=== PATIENT | female | born 1950 | race Caucasian/White ===

== ENCOUNTER 2018-11-09 09:53 | Emergency (ER) | payer OTHER ==
[~2018-11-09] VITALS: Ht 172.7 cm; Wt 102.1 kg
[~2018-11-09 09:53] MED LIST: ASPIRIN EC81 M1 PO; B-COMPLEX-VITA1 EACH PO; FISH OIL 1,0001 EAC5 PO; HYDROCODON-ACE1 EAC7 PO; LOPRESSOR25 PO; OMEGA 3-6-9 CO1 EACH PO; TOPROL XL25 MG PO
[2018-11-09 10:38] LABS: ABSOLUTE NEUTROPHILS 3.5 thou/uL (1.4-8.2); BASOPHILS 1.1 % (0.0-2.0); EOSINOPHILS 3.5 % (0.0-3.0); HEMATOCRIT 44.3 % (37.0-47.0); HEMOGLOBIN 14.9 gm/dL (12.0-15.0); LYMPHOCYTES 30.1 % (24.0-44.0); MCH 32.4 pg (26.0-34.0); MCHC 33.5 g/dL (28.0-37.0); MCV 96.5 fL (80.0-100.0); PLATELET COUNT 217 thou/uL (150-400); POLYS 57.3 % (36.0-66.0); RDW 13.1 % (10.5-14.5)
[2018-11-09 10:42] LABS: ANION GAP 7 mmol/L (7-16); BUN 21 mg/dL (7-18); CALCIUM 9.2 mg/dL (8.5-10.1); CHLORIDE 107 mmol/L (98-107); CO2 28 mmol/L (21-32); CREATININE 0.9 mg/dL (0.6-1.0); GLUCOSE 94 mg/dL (74-106); POTASSIUM 4.3 mmol/L (3.5-5.1); SODIUM 142 mmol/L (136-145)
[2018-11-09 10:46] LABS: INR 1.9; PROTIME 20.2 Seconds (9.3-11.4)
[2018-11-09 10:50] LABS: ALBUMIN 3.9 g/dL (3.4-5.0); SGOT 28 U/L (15-37); SGPT 48 U/L (30-65); TOTAL BILIRUBIN 0.9 mg/dL (<0.1-1.0); TOTAL PROTEIN 7.3 g/dL (6.4-8.2); TROPONIN-I <0.06 ng/mL (<0.06)
[2018-11-09 11:20] LABS: URINE BILIRUBIN NEGATIVE (Negative); URINE BLOOD NEGATIVE (Negative); URINE CLARITY CLEAR; URINE COLOR YELLOW; URINE GLUCOSE-RANDOM* NEGATIVE (Negative); URINE KETONES NEGATIVE (Negative); URINE LEUKOCYTES-REFLEX NEGATIVE (Negative); URINE NITRITE-REFLEX NEGATIVE (Negative); URINE PROTEIN (DIPSTICK) NEGATIVE (Negative); URINE SPECIFIC GRAVITY <= 1.005 (1.005-1.035); URINE UROBILINOGEN 0.2 E.U./dl (0.2-1.0)
[2018-11-09 14:05] VITALS: BP 122/83
[2018-11-09] MEDS ORDERED: LOVASTATIN 20 M20 MG PO (14:12)
[2018-11-09] MEDS ORDERED: GABAPENTIN 100100 MG PO (14:13)
[2018-11-09] MEDS ORDERED: COUMADIN 2.5MG2.5 M1 PO (14:14)
--- NOTE | 2018-11-09 22:16 | EKG ---
[address] [address] ELECTROCARDIOGRAM REPORT Name: CARLI ORTIZ Room #: DEP [facility]#: [id number] Admission: 11/09/18 Attend Phys: Discharge: 11/09/18 Date of : 48 Report #: [id number] THIS REPORT FOR: //name// [facility] ED Test Date: 2018-11-09 Test Time: 10:09:13 Pat Name: CARLI ORTIZ Department: Room: Gender: F Windows Infrastructure Engineer: ARTURO : 1950 Requested By: Leonidas Myers Order Number: [id number] MD: Micheal Sandhu Measurements Intervals [place] Rate: 57 P: [place]: QRS: 23 QRSD: 106 T: 24 QT: 409 QTc: 399 Interpretive Statements Atrial fibrillation Low voltage, precordial leads Compared to ECG 03/17/2012 13:35:40 Low QRS voltage now present Sinus rhythm no longer present Electronically Signed On 11-09-2018 22:16:18 CONSTRUCTION JOB COST ESTIMATOR by Micheal Sandhu [email or web address] <ELECTRONICALLY SIGNED> By: Micheal Sandhu MD 11/09/18 2216 Micheal Sandhu MD /PAVITHRA
== END 2018-11-09 14:13 | disposition home or self-care (01) ==
LOC: ER 09:53
PROVIDERS: Emergency Medicine
DX: R07.89 Other chest pain (principal); R42 Dizziness and giddiness; I48.91 Unspecified atrial fibrillation; Z87.891 Personal history of nicotine dependence; Z90.710 Acquired absence of both cervix and uterus

== ENCOUNTER → 2019-12-03 | Outpatient (CLI) | payer OTHER ==
[~2019-12-03] MED LIST changes: +COUMADIN 2.5MG2.5 M1 PO; +GABAPENTIN 100100 MG PO; +LOVASTATIN 20 M20 MG PO
== END ==
LOC: SJCVC 15:56
DX: Z51.81 Encounter for therapeutic drug level monitoring (principal); E78.5 Hyperlipidemia, unspecified; Z79.01 Long term (current) use of anticoagulants

== ENCOUNTER → 2019-12-10 | Outpatient (CLI) | payer OTHER | LOC: SJCVC 14:29 | DX: Z51.81 Encounter for therapeutic drug level monitoring (principal); M19.90 Unspecified osteoarthritis, unspecified site; I48.91 Unspecified atrial fibrillation; Z79.01 Long term (current) use of anticoagulants ==

== ENCOUNTER → 2019-12-28 | Outpatient (CLI) | payer OTHER | LOC: SJCVC 10:41 | DX: Z51.81 Encounter for therapeutic drug level monitoring (principal); I48.91 Unspecified atrial fibrillation; M19.90 Unspecified osteoarthritis, unspecified site; Z79.01 Long term (current) use of anticoagulants ==

== ENCOUNTER → 2020-01-07 | Outpatient (CLI) | payer OTHER | LOC: SJCVC 13:22 | DX: Z51.81 Encounter for therapeutic drug level monitoring (principal); I48.91 Unspecified atrial fibrillation; E78.5 Hyperlipidemia, unspecified; M19.90 Unspecified osteoarthritis, unspecified site; Z79.01 Long term (current) use of anticoagulants ==

== ENCOUNTER → 2020-01-21 | Outpatient (CLI) | payer OTHER ==
[~2020-01-21] MED LIST changes: +CYMBALTA60 MG PO; +NEURONTIN 400M400 M2 PO; +OXYCODONE HCL5 MG PO
== END ==
LOC: SJCVC 10:14
PROVIDERS: ATTEND Internal Medicine Cardiovascular Disease
DX: Z51.81 Encounter for therapeutic drug level monitoring (principal); I48.91 Unspecified atrial fibrillation; M19.90 Unspecified osteoarthritis, unspecified site; E78.5 Hyperlipidemia, unspecified; Z79.01 Long term (current) use of anticoagulants

== ENCOUNTER → 2020-02-11 | Outpatient (CLI) | payer OTHER | LOC: SJCVC 13:34 | DX: Z51.81 Encounter for therapeutic drug level monitoring (principal); I48.91 Unspecified atrial fibrillation; E78.5 Hyperlipidemia, unspecified; M19.90 Unspecified osteoarthritis, unspecified site; Z79.01 Long term (current) use of anticoagulants; Z79.899 Other long term (current) drug therapy ==

== ENCOUNTER 2020-02-14 17:33 | Emergency (ER) | payer OTHER ==
[~2020-02-14] VITALS: Ht 175.3 cm; Wt 96.2 kg
[~2020-02-14 17:33] MED LIST changes: -CYMBALTA60 MG PO; -NEURONTIN 400M400 M2 PO; -OXYCODONE HCL5 MG PO
[2020-02-14] MEDS ORDERED: NEURONTIN 400M400 M2 PO (18:05)
[2020-02-14] MEDS ORDERED: CYMBALTA60 MG PO (18:07)
[2020-02-14] MEDS ORDERED: OXYCODONE HCL5 MG PO (18:08)
[2020-02-14 18:45] LABS: ABSOLUTE NEUTROPHILS 4.1 thou/uL (1.4-8.2); BASOPHILS 0.7 % (0.0-2.0); EOSINOPHILS 3.6 % (0.0-3.0); HEMATOCRIT 44.5 % (37.0-47.0); HEMOGLOBIN 15.3 gm/dL (12.0-15.0); LYMPHOCYTES 30.4 % (24.0-44.0); MCH 33.5 pg (26.0-34.0); MCHC 34.3 g/dL (28.0-37.0); MCV 97.4 fL (80.0-100.0); MONOCYTES 8.1 % (1.0-8.0); PLATELET COUNT 243 thou/uL (150-400); POLYS 57.2 % (36.0-66.0); RBC 4.56 mil/uL (4.20-5.00); RDW 13.3 % (10.5-14.5); WBC 7.2 thou/uL (4.0-11.0)
[2020-02-14 18:54] LABS: ANION GAP 9 mmol/L (7-16); BUN 14 mg/dL (7-18); CALCIUM 9.1 mg/dL (8.5-10.1); CHLORIDE 101 mmol/L (98-107); CO2 25 mmol/L (21-32); CREATININE 0.9 mg/dL (0.6-1.0); GLUCOSE 92 mg/dL (74-106); POTASSIUM 3.8 mmol/L (3.5-5.1); SODIUM 135 mmol/L (136-145)
[2020-02-14 19:00] LABS: APTT 36.8 Seconds (24.5-32.8); PROTIME 20.1 Seconds (9.3-11.4)
[2020-02-14 19:05] LABS: ALBUMIN 3.7 g/dL (3.4-5.0); SGOT 28 U/L (15-37); SGPT 32 U/L (30-65); TOTAL BILIRUBIN 1.2 mg/dL (<0.1-1.0); TROPONIN-I <0.06 ng/mL (<0.06)
[2020-02-14 19:38] LABS: URINE BILIRUBIN NEGATIVE (Negative); URINE BLOOD NEGATIVE (Negative); URINE CLARITY CLOUDY; URINE COLOR YELLOW; URINE GLUCOSE-RANDOM* NEGATIVE (Negative); URINE KETONES 1+ (Negative); URINE LEUKOCYTES-REFLEX NEGATIVE (Negative); URINE NITRITE-REFLEX NEGATIVE (Negative); URINE PROTEIN (DIPSTICK) NEGATIVE (Negative); URINE SPECIFIC GRAVITY 1.025 (1.005-1.035)
[2020-02-14 20:00] VITALS: BP 134/90
--- NOTE | 2020-02-15 08:19 | EKG ---
[facility] [place] [address] [address] [place] [address] ELECTROCARDIOGRAM REPORT Name: CARLI ORTIZ Room #: DEP [facility]#: [id number] Admission: 02/14/20 Attend Phys: Discharge: 02/14/20 Date of : 48 Report #: [id number] THIS REPORT FOR: cc: Jt Blandon MD, Jin S. MD Lundgren, Craig H. MD [facility] ~ THIS REPORT FOR: //name// [facility] ED Test Date: 2020-02-14 Test Time: 18:51:15 Pat Name: CARLI ORTIZ Department: Room: Gender: F Banking Manager: : 1950 Requested By: Sri Walker Order Number: [id number] MD: Sami Angel Measurements Intervals [place] Rate: 70 P: NE: QRS: 20 QRSD: 98 T: -6 QT: 409 QTc: 442 Interpretive Statements Atrial fibrillation Low voltage, precordial leads Poor R wave progression Borderline T abnormalities, inferior leads Compared to ECG 11/09/2018 10:09:13 T-wave abnormality now present Electronically Signed On 02-15-2020 8:18:14 CDT by Sami Angel [email or web address] <ELECTRONICALLY SIGNED> By: Sami Angel MD, [facility] 02/15/20 0818 50 50 Sami Angel MD, [facility] /EPI
== END 2020-02-14 20:00 | disposition home or self-care (01) ==
LOC: ER 17:33
PROVIDERS: Physician Assistant
DX: B34.9 Viral infection, unspecified (principal); E86.0 Dehydration; I48.91 Unspecified atrial fibrillation; F17.210 Nicotine dependence, cigarettes, uncomplicated; Z03.818 Encounter for observation for suspected exposure to other biological agents ruled out; Z90.49 Acquired absence of other specified parts of digestive tract; Z90.710 Acquired absence of both cervix and uterus; Z79.899 Other long term (current) drug therapy; Z79.01 Long term (current) use of anticoagulants

== ENCOUNTER → 2020-03-11 | Outpatient (CLI) | payer OTHER ==
[~2020-03-11] MED LIST changes: +CYMBALTA60 MG PO; +NEURONTIN 400M400 M2 PO; +OXYCODONE HCL5 MG PO
== END ==
LOC: SJCVC 13:16
DX: Z51.81 Encounter for therapeutic drug level monitoring (principal); Z79.01 Long term (current) use of anticoagulants

== ENCOUNTER → 2020-04-09 | Outpatient (CLI) | payer OTHER | LOC: SJCVC 16:05 | PROVIDERS: ATTEND Internal Medicine Cardiovascular Disease | DX: Z51.81 Encounter for therapeutic drug level monitoring (principal); I48.91 Unspecified atrial fibrillation; M19.90 Unspecified osteoarthritis, unspecified site; E78.5 Hyperlipidemia, unspecified; Z79.01 Long term (current) use of anticoagulants ==

== ENCOUNTER → 2020-05-12 | Outpatient (CLI) | payer OTHER | LOC: SJCVC 13:22 | PROVIDERS: ATTEND Internal Medicine Cardiovascular Disease | DX: Z51.81 Encounter for therapeutic drug level monitoring (principal); I48.91 Unspecified atrial fibrillation; E78.5 Hyperlipidemia, unspecified; Z79.01 Long term (current) use of anticoagulants; Z79.899 Other long term (current) drug therapy ==

== ENCOUNTER → 2020-06-17 | Outpatient (CLI) | payer OTHER | LOC: SJCVCIMAG 13:15 | PROVIDERS: ATTEND Internal Medicine Cardiovascular Disease | DX: I08.2 Rheumatic disorders of both aortic and tricuspid valves (principal); I48.91 Unspecified atrial fibrillation; I44.0 Atrioventricular block, first degree; I49.49 Other premature depolarization; E78.5 Hyperlipidemia, unspecified; I47.1 Supraventricular tachycardia; Z79.01 Long term (current) use of anticoagulants; Z79.899 Other long term (current) drug therapy; Z87.891 Personal history of nicotine dependence ==

== ENCOUNTER → 2020-06-25 | Outpatient (CLI) | payer OTHER | LOC: SJCVC 11:12 | PROVIDERS: ATTEND Internal Medicine Cardiovascular Disease | DX: Z51.81 Encounter for therapeutic drug level monitoring (principal); I10 Essential (primary) hypertension; I48.91 Unspecified atrial fibrillation; E78.5 Hyperlipidemia, unspecified; Z90.49 Acquired absence of other specified parts of digestive tract; Z79.01 Long term (current) use of anticoagulants ==

== ENCOUNTER → 2020-07-03 | Outpatient (CLI) | payer OTHER | LOC: CAT 09:51 | PROVIDERS: ATTEND Family Medicine | DX: I31.3 Pericardial effusion (noninflammatory) (principal); M47.816 Spondylosis without myelopathy or radiculopathy, lumbar region; J98.6 Disorders of diaphragm; R11.0 Nausea; R10.9 Unspecified abdominal pain; R63.4 Abnormal weight loss ==

== ENCOUNTER → 2020-07-09 | Outpatient (CLI) | payer OTHER | LOC: SJCVC 10:06 | PROVIDERS: ATTEND Internal Medicine Cardiovascular Disease | DX: Z51.81 Encounter for therapeutic drug level monitoring (principal); I48.91 Unspecified atrial fibrillation; I10 Essential (primary) hypertension; E78.5 Hyperlipidemia, unspecified; Z90.49 Acquired absence of other specified parts of digestive tract; Z79.01 Long term (current) use of anticoagulants ==

== ENCOUNTER → 2020-07-23 | Outpatient (CLI) | payer OTHER | LOC: SJCVC 13:35 | PROVIDERS: ATTEND Internal Medicine Cardiovascular Disease | DX: Z51.81 Encounter for therapeutic drug level monitoring (principal); Z79.01 Long term (current) use of anticoagulants; I48.91 Unspecified atrial fibrillation; E78.5 Hyperlipidemia, unspecified ==

== ENCOUNTER → 2020-08-20 | Outpatient (CLI) | payer OTHER | LOC: SJCVC 13:12 | PROVIDERS: ATTEND Internal Medicine Cardiovascular Disease | DX: Z51.81 Encounter for therapeutic drug level monitoring (principal); I48.91 Unspecified atrial fibrillation; M19.90 Unspecified osteoarthritis, unspecified site; E78.5 Hyperlipidemia, unspecified; Z79.01 Long term (current) use of anticoagulants; Z79.899 Other long term (current) drug therapy ==

== ENCOUNTER → 2020-09-17 | Outpatient (CLI) | payer OTHER | LOC: SJCVC 12:53 | PROVIDERS: ATTEND Internal Medicine Cardiovascular Disease | DX: Z51.81 Encounter for therapeutic drug level monitoring (principal); Z79.01 Long term (current) use of anticoagulants ==

== ENCOUNTER → 2020-10-15 | Outpatient (CLI) | payer OTHER | LOC: SJCVC 13:18 | PROVIDERS: ATTEND Internal Medicine Cardiovascular Disease | DX: Z51.81 Encounter for therapeutic drug level monitoring (principal); I48.91 Unspecified atrial fibrillation; M19.90 Unspecified osteoarthritis, unspecified site; E78.5 Hyperlipidemia, unspecified; Z79.01 Long term (current) use of anticoagulants; Z79.899 Other long term (current) drug therapy ==

== ENCOUNTER → 2020-11-13 | Outpatient (CLI) | payer OTHER | LOC: SJCVC 15:42 | PROVIDERS: ATTEND Internal Medicine Cardiovascular Disease | DX: Z51.81 Encounter for therapeutic drug level monitoring (principal); Z79.01 Long term (current) use of anticoagulants; Z79.891 Long term (current) use of opiate analgesic; Z79.899 Other long term (current) drug therapy; Z90.89 Acquired absence of other organs; Z90.710 Acquired absence of both cervix and uterus; Z98.890 Other specified postprocedural states; Z87.891 Personal history of nicotine dependence; Z72.89 Other problems related to lifestyle ==

== ENCOUNTER → 2020-12-15 | Outpatient (CLI) | payer OTHER | LOC: SJCVC 13:32 | PROVIDERS: ATTEND Internal Medicine Cardiovascular Disease | DX: Z51.81 Encounter for therapeutic drug level monitoring (principal); Z79.01 Long term (current) use of anticoagulants; Z79.899 Other long term (current) drug therapy; Z79.891 Long term (current) use of opiate analgesic; Z87.891 Personal history of nicotine dependence; Z72.89 Other problems related to lifestyle; F12.90 Cannabis use, unspecified, uncomplicated ==

== ENCOUNTER → 2020-12-23 | Outpatient (CLI) | payer OTHER | LOC: SJCVC 12:50 | PROVIDERS: ATTEND Internal Medicine Cardiovascular Disease | DX: R94.31 Abnormal electrocardiogram [ECG] [EKG] (principal); I48.91 Unspecified atrial fibrillation; E78.5 Hyperlipidemia, unspecified; I47.1 Supraventricular tachycardia; R07.9 Chest pain, unspecified; Z79.01 Long term (current) use of anticoagulants; Z79.899 Other long term (current) drug therapy; M19.90 Unspecified osteoarthritis, unspecified site; I10 Essential (primary) hypertension; Z87.891 Personal history of nicotine dependence; Z72.89 Other problems related to lifestyle; F12.90 Cannabis use, unspecified, uncomplicated ==

== ENCOUNTER → 2021-01-12 | Outpatient (CLI) | payer OTHER | LOC: SJCVCIMAG 09:18 | PROVIDERS: ATTEND Internal Medicine Cardiovascular Disease | DX: I48.91 Unspecified atrial fibrillation (principal); R06.00 Dyspnea, unspecified; E78.5 Hyperlipidemia, unspecified; I47.1 Supraventricular tachycardia; R07.9 Chest pain, unspecified; I10 Essential (primary) hypertension; M19.90 Unspecified osteoarthritis, unspecified site; F12.90 Cannabis use, unspecified, uncomplicated; Z79.899 Other long term (current) drug therapy; Z87.891 Personal history of nicotine dependence; Z72.89 Other problems related to lifestyle; Z79.01 Long term (current) use of anticoagulants ==

== ENCOUNTER 2021-02-03 16:56 | Inpatient (IN) | payer OTHER ==
[~2021-02-03] VITALS: Ht 172.7 cm; Wt 90.7 kg
[2021-02-03 17:17] VITALS: BP 159/105
[2021-02-03 17:38] LABS: URINE BLOOD 2+ (Negative); URINE CLARITY CLEAR; URINE COLOR YELLOW; URINE GLUCOSE-RANDOM* NEGATIVE (Negative); URINE KETONES TRACE (Negative); URINE LEUKOCYTES-REFLEX NEGATIVE (Negative); URINE NITRITE-REFLEX NEGATIVE (Negative); URINE PROTEIN (DIPSTICK) 1+ (Negative); URINE SPECIFIC GRAVITY 1.015 (1.005-1.035)
[2021-02-03 17:41] LABS: ICTOTEST (BILI CONFIRMATORY) Negative (Negative); URINE BILIRUBIN NEGATIVE (Negative)
[2021-02-03 17:46] LABS: BASOPHILS 0.8 % (0.0-2.0); EOSINOPHILS 1.2 % (0.0-3.0); HEMATOCRIT 49.4 % (37.0-47.0); HEMOGLOBIN 17.3 gm/dL (12.0-15.0); LYMPHOCYTES 25.7 % (24.0-44.0); MCH 34.7 pg (26.0-34.0); MONOCYTES 6.6 % (1.0-8.0); PLATELET COUNT 255 thou/uL (150-400); POLYS 65.7 % (36.0-66.0); RBC 4.99 mil/uL (4.20-5.00); RDW 12.9 % (10.5-14.5); WBC 10.7 thou/uL (4.0-11.0)
[2021-02-03 17:48] LABS: MUCUS 4-6 Moderate strn/LPF (None Seen); SQUAMOUS >10 Many /LPF (0-3)
[2021-02-03 17:49] LABS: AMORPHOUS URATES Few /LPF (None Seen); URINE RBC 0-2 Rare /HPF (0-2); URINE WBC-REFLEX 0-5 Rare /HPF (0-5)
[2021-02-03 17:50] LABS: CASTS None Seen /LPF (None Seen)
[2021-02-03 18:00] LABS: CALCIUM 9.6 mg/dL (8.5-10.1); CREATININE 0.9 mg/dL (0.6-1.0); POTASSIUM 4.5 mmol/L (3.5-5.1)
[2021-02-03 18:02] LABS: APTT 32.5 Seconds (24.5-32.8); INR 1.67; PROTIME 17.8 Seconds (9.3-11.4)
[2021-02-03 18:05] LABS: ALBUMIN 4.4 g/dL (3.4-5.0); TOTAL BILIRUBIN 1.4 mg/dL (0.2-1.0); TOTAL PROTEIN 8.2 g/dL (6.4-8.2)
[2021-02-03 18:18] LABS: AMP/METHAMP Negative (Negative); BARBITURATES Negative (Negative); BENZODIAZEPINES Negative (Negative); COCAINE Negative (Negative); METHADONE Negative (Negative); OPIATES POSITIVE (Negative); PCP Negative (Negative)
[2021-02-03 21:32] VITALS: BP 158/91
[2021-02-03 22:13] VITALS: BP 126/62
[2021-02-03 23:04] VITALS: BP 157/104
[2021-02-04] MEDS ORDERED: WARFARIN SODIUM5 MG PO (00:41)
--- NOTE | 2021-02-04 01:09 | NUR ---
PT ARRIVED FROM THE ER. A&OX4 DENIES PAIN. C/O NAUSEA ONETIME COMPAZINE GIVEN. PT EXPRESSED RELIEF. IV INTACT AND FLUIDS INFUSING. PT ON CLEAR LIQUID DIET. CLEAR LUNGS SOUNDS. DENIES COUGH, C/O FEVER AND CHILLS TEMP 98.8. PT UP AD MAC TO THE BATHROOM. EDUCATION ON FALL PRECAUTIONS. WILL CONT TO MONITOR.
[2021-02-04 05:51] LABS: INR 1.67; PROTIME 17.8 Seconds (9.3-11.4)
[2021-02-04 05:54] LABS: HEMATOCRIT 44.4 % (37.0-47.0); MCH 33.7 pg (26.0-34.0); MCHC 33.8 g/dL (28.0-37.0); MCV 99.8 fL (80.0-100.0); RBC 4.45 mil/uL (4.20-5.00); WBC 8.3 thou/uL (4.0-11.0)
[2021-02-04 06:13] LABS: CALCIUM 8.8 mg/dL (8.5-10.1); CREATININE 0.9 mg/dL (0.6-1.0); POTASSIUM 3.8 mmol/L (3.5-5.1)
[2021-02-04 08:58] VITALS: BP 145/103
--- NOTE | 2021-02-04 09:06 | NUR ---
ASSESSMENT: CM REVIEWED CHART AND SPOKE WITH PATIENT. PT IS ALERT AND ORIENTED X4. PT REPORTS SHE LIVES IN A HOUSE WITH HER DAUGHTER AND GRANDDAUGHTER. PT REPORTS SHE HAS ABOUT 5-6 STEPS WITH HANDRAIL TO ENTER. PT REPORTS ALL HER NEEDS ARE ON ONE LEVEL. PT REPORTS BEING FULLY INDEPENDENT WITH ADLS AND AMBULATION. PT HAS NO DME OR THE NEED FOR IT. PT HAS NO PAST HX OF HH OR SNF. PT WAS ADMITTED DUE TO INTRACTABLE VOMITTING AND ABDOMINAL PAIN. PT UDS POSITIVE FOR [place] AND PER RECORDS REPORTS SMOKING 2-3X/WK. PT IS ON CLEAR LIQUIDS AND GI HAS BEEN CONSULTED. CM DISCUSSED ROLE. PT DOES NOT ANTICIPATE HAVING ANY NEEDS FROM CM PRIOR TO DISCHARGE. CM WILL CONTINUE TO FOLLOW TO ASSIST NEEDED.
--- NOTE | 2021-02-04 10:26 | NUR ---
ASSUMED PT CARE THIS AM. PT IS ALERT & ORIENTED X4. PT HAS R FA 20 GAUGE RUNNING NS @125ML/HR. PT C/O OF HEADACHE AND NAUSEA THIS AM. GIVEN PAIN AND NAUSEA MEDICATION. PT STATED SHE DIDN'T SLEEP WELL LAST NIGHT. PT ON THE BED SLEEPING, BED ON THE LOWEST POSITION, SIDE RAILS UP, CALL LIGHT WITHIN REACH. WILL CONTINUE TO MONITOR PT. FOLLOW POC.
[2021-02-04 15:10] VITALS: BP 129/94
--- NOTE | 2021-02-04 17:26 | EKG ---
[address] [place] [address] ELECTROCARDIOGRAM REPORT Name: CARLI ORTIZ Room #: 437-P ADM IN M.R.#: [id number] Admission: 02/03/21 Attend Phys: Shaji Apodaca MD Discharge: Date of : 48 Report #: [id number] [facility] ED Test Date: 2021-02-03 Test Time: 17:51:57 Pat Name: CARLI ORTIZ Department: Room: [facility] Gender: F Business Development Recruiter: KARI VICENTE : 1950 Requested By: Wilber Brooks Order Number: [id number] MD: Sami Angel Measurements Intervals [place] Rate: 75 P: [place]: QRS: 31 QRSD: 104 T: -6 QT: 399 QTc: 446 Interpretive Statements Atrial fibrillation Poor R wave progression Borderline T abnormalities, inferior leads Compared to ECG 02/14/2020 18:51:15 No significant change was found Electronically Signed On 02-04-2021 17:26:35 CDT by Sami Angel [email or web address] <ELECTRONICALLY SIGNED> By: Sami Angel MD, [facility] 02/04/21 172 50 50 Sami Angel MD, [facility] /EPI
[2021-02-04 18:57] VITALS: BP 134/79
[2021-02-05 04:05] VITALS: BP 152/93
--- NOTE | 2021-02-05 04:55 | NUR ---
RECEIVED CARE OF THIS PATIENT AT 1900. PATIENT ALERT AND ORIENTED AND VERY ANXIOUS. WANTS TO GO HOME TO THE POINT OF CRYING. UP AD MAC. DENIES PAIN. C/O MILD PRESSURE FEELING IN ABD. NO C/O NAUSEA THIS SHIFT. IV PATENT WITH FLUIDS INFUSING. SLEPT OFF AND ON DURING NIGHT.
[2021-02-05 05:20] LABS: HEMATOCRIT 42.9 % (37.0-47.0); HEMOGLOBIN 14.5 gm/dL (12.0-15.0); MCH 33.5 pg (26.0-34.0); MCHC 33.8 g/dL (28.0-37.0); MCV 99.1 fL (80.0-100.0); RBC 4.32 mil/uL (4.20-5.00); RDW 12.8 % (10.5-14.5); WBC 7.6 thou/uL (4.0-11.0)
[2021-02-05 05:50] LABS: CALCIUM 8.7 mg/dL (8.5-10.1); CREATININE 0.8 mg/dL (0.6-1.0); POTASSIUM 3.6 mmol/L (3.5-5.1)
[2021-02-05 05:52] LABS: INR 1.89
[2021-02-05 07:53] VITALS: BP 131/90
--- NOTE | 2021-02-05 12:00 | NUR ---
ASSUMED PT CARE THIS AM. PT IS ALERT & ORIENTED X4. NO NAUSEA AND VOMITING DURING SHIFT. PT HAS IV SITE ON R UA 20 GAUGE RUNNING NS @ 125ML/HR. INFORM DR ABOUT PT CONCERN THAT SHE WANTED TO BE DISCHARGE TODAY. PT ON THE BED, BED ON THE LOWEST POSITION, SIDE RAILS UP, CALL LIGHT WITHIN REACH. WILL CONTINUE TO MONITOR. FOLLOW POC.
[2021-02-05 12:10] VITALS: BP 131/90
--- NOTE | 2021-02-05 12:52 | NUR ---
on-going assessment: CM REVIEWED CHART. PT HAS ORDERS TO DISCHARGE HOME TODAY. PT HAS NO NEEDS FROM CM.
== END 2021-02-05 13:03 | disposition home or self-care (01) | DRG 918 ==
LOC: ER 16:56 → EROBS 21:06 → 4S 21:06
PROVIDERS: Emergency Medicine; Nurse Practitioner Family; ADMIT Hospitalist; ATTEND Hospitalist
DX: T40.7X1A Poisoning by cannabis (derivatives), accidental (unintentional), initial encounter (principal); K52.1 Toxic gastroenteritis and colitis; R11.2 Nausea with vomiting, unspecified; I48.91 Unspecified atrial fibrillation; J30.2 Other seasonal allergic rhinitis; I10 Essential (primary) hypertension; E78.5 Hyperlipidemia, unspecified; M19.90 Unspecified osteoarthritis, unspecified site; F32.9 Major depressive disorder, single episode, unspecified; F41.9 Anxiety disorder, unspecified; F12.10 Cannabis abuse, uncomplicated; E53.8 Deficiency of other specified B group vitamins; M81.0 Age-related osteoporosis without current pathological fracture; Z90.710 Acquired absence of both cervix and uterus; Z90.49 Acquired absence of other specified parts of digestive tract; Z87.891 Personal history of nicotine dependence; Z79.01 Long term (current) use of anticoagulants
CPT/HCPCS: 10102

== ENCOUNTER → 2021-02-09 | Outpatient (CLI) | payer OTHER ==
[~2021-02-09] MED LIST changes: +WARFARIN SODIUM5 MG PO
== END ==
LOC: SJCVC 13:15
PROVIDERS: ATTEND Internal Medicine Cardiovascular Disease
DX: Z51.81 Encounter for therapeutic drug level monitoring (principal); I48.91 Unspecified atrial fibrillation; I47.1 Supraventricular tachycardia; E78.5 Hyperlipidemia, unspecified; Z79.01 Long term (current) use of anticoagulants; Z79.899 Other long term (current) drug therapy; Z87.891 Personal history of nicotine dependence; Z72.89 Other problems related to lifestyle

== ENCOUNTER → 2021-03-09 | Outpatient (CLI) | payer OTHER | LOC: SJCVC 13:04 | PROVIDERS: ATTEND Internal Medicine Cardiovascular Disease | DX: Z51.81 Encounter for therapeutic drug level monitoring (principal); I48.91 Unspecified atrial fibrillation; M19.90 Unspecified osteoarthritis, unspecified site; E78.5 Hyperlipidemia, unspecified; R07.9 Chest pain, unspecified; Z79.01 Long term (current) use of anticoagulants ==

== ENCOUNTER → 2021-04-13 | Outpatient (CLI) | payer OTHER | LOC: SJCVC 10:35 | PROVIDERS: ATTEND Internal Medicine Cardiovascular Disease | DX: Z51.81 Encounter for therapeutic drug level monitoring (principal); I48.91 Unspecified atrial fibrillation; I47.1 Supraventricular tachycardia; M19.90 Unspecified osteoarthritis, unspecified site; E78.5 Hyperlipidemia, unspecified; Z79.01 Long term (current) use of anticoagulants ==

== ENCOUNTER 2021-04-17 21:13 | Emergency (ER) | payer OTHER ==
[~2021-04-17] VITALS: Ht 172.7 cm; Wt 88.5 kg
[2021-04-17 23:16] VITALS: BP 104/75
== END 2021-04-17 23:17 | disposition home or self-care (01) ==
LOC: ER 21:13
DX: S91.115A Laceration without foreign body of left lesser toe(s) without damage to nail, initial encounter (principal); I10 Essential (primary) hypertension; I48.91 Unspecified atrial fibrillation; F17.210 Nicotine dependence, cigarettes, uncomplicated; Z90.89 Acquired absence of other organs; Z98.890 Other specified postprocedural states; Z90.710 Acquired absence of both cervix and uterus; W04.XXXA Fall while being carried or supported by other persons, initial encounter; Y93.89 Activity, other specified; Y92.89 Other specified places as the place of occurrence of the external cause; Y99.8 Other external cause status

== ENCOUNTER → 2021-05-14 | Outpatient (CLI) | payer OTHER | LOC: SJCVC 13:51 | PROVIDERS: ATTEND Internal Medicine Cardiovascular Disease | DX: Z51.81 Encounter for therapeutic drug level monitoring (principal); I48.91 Unspecified atrial fibrillation; M19.90 Unspecified osteoarthritis, unspecified site; E78.5 Hyperlipidemia, unspecified; Z79.01 Long term (current) use of anticoagulants; Z79.899 Other long term (current) drug therapy ==

== ENCOUNTER 2021-06-05 11:03 | Emergency (ER) | payer OTHER ==
[~2021-06-05] VITALS: Ht 172.7 cm; Wt 88.5 kg
[2021-06-05 11:19] LABS: URINE BILIRUBIN NEGATIVE (Negative); URINE BLOOD TRACE (Negative); URINE CLARITY CLEAR; URINE COLOR YELLOW; URINE GLUCOSE-RANDOM* NEGATIVE (Negative); URINE KETONES NEGATIVE (Negative); URINE LEUKOCYTES-REFLEX NEGATIVE (Negative); URINE NITRITE-REFLEX NEGATIVE (Negative); URINE PROTEIN (DIPSTICK) NEGATIVE (Negative); URINE SPECIFIC GRAVITY 1.015 (1.005-1.035); URINE UROBILINOGEN 0.2 E.U./dl (0.2-1.0)
[2021-06-05 11:35] LABS: HEMATOCRIT 44.2 % (37.0-47.0); HEMOGLOBIN 15.1 gm/dL (12.0-15.0); MCH 34.3 pg (26.0-34.0); MCHC 34.2 g/dL (28.0-37.0); MCV 100.1 fL (80.0-100.0); RBC 4.42 mil/uL (4.20-5.00); RDW 13.4 % (10.5-14.5); WBC 7.6 thou/uL (4.0-11.0)
[2021-06-05 11:45] LABS: CALCIUM 9.2 mg/dL (8.5-10.1); POTASSIUM 4.3 mmol/L (3.5-5.1)
[2021-06-05 11:51] LABS: ALBUMIN 4.1 g/dL (3.4-5.0); TOTAL PROTEIN 7.2 g/dL (6.4-8.2)
[2021-06-05 14:22] VITALS: BP 129/89
== END 2021-06-05 14:27 | disposition home or self-care (01) ==
LOC: ER 11:03
PROVIDERS: Nurse Practitioner Family
DX: R10.32 Left lower quadrant pain (principal); F32.9 Major depressive disorder, single episode, unspecified; F41.9 Anxiety disorder, unspecified; I10 Essential (primary) hypertension; E78.5 Hyperlipidemia, unspecified; Z90.710 Acquired absence of both cervix and uterus; Z90.49 Acquired absence of other specified parts of digestive tract; Z79.899 Other long term (current) drug therapy; Z88.6 Allergy status to analgesic agent; Z87.891 Personal history of nicotine dependence

== ENCOUNTER → 2021-06-15 | Outpatient (CLI) | payer OTHER | LOC: SJCVC 12:53 | PROVIDERS: ATTEND Internal Medicine Cardiovascular Disease | DX: Z51.81 Encounter for therapeutic drug level monitoring (principal); Z79.01 Long term (current) use of anticoagulants ==

== ENCOUNTER → 2021-07-15 | Outpatient (CLI) | payer OTHER | LOC: SJCVC 14:24 | PROVIDERS: ATTEND Internal Medicine Cardiovascular Disease | DX: I48.91 Unspecified atrial fibrillation (principal); R94.31 Abnormal electrocardiogram [ECG] [EKG]; E78.5 Hyperlipidemia, unspecified; I10 Essential (primary) hypertension; F12.90 Cannabis use, unspecified, uncomplicated; Z79.891 Long term (current) use of opiate analgesic; Z79.899 Other long term (current) drug therapy; Z72.89 Other problems related to lifestyle; Z87.891 Personal history of nicotine dependence; Z51.81 Encounter for therapeutic drug level monitoring; Z79.01 Long term (current) use of anticoagulants ==

== ENCOUNTER → 2021-09-04 | Outpatient (CLI) | payer OTHER | LOC: SJCVC 09:39 | PROVIDERS: ATTEND Internal Medicine Cardiovascular Disease | DX: Z51.81 Encounter for therapeutic drug level monitoring (principal); Z79.01 Long term (current) use of anticoagulants; I48.91 Unspecified atrial fibrillation; I47.1 Supraventricular tachycardia; M19.90 Unspecified osteoarthritis, unspecified site; E78.5 Hyperlipidemia, unspecified; Z79.899 Other long term (current) drug therapy ==

== ENCOUNTER → 2021-10-02 | Outpatient (CLI) | payer OTHER | LOC: SJCVC 13:30 | PROVIDERS: ATTEND Internal Medicine Cardiovascular Disease | DX: Z51.81 Encounter for therapeutic drug level monitoring (principal); Z79.01 Long term (current) use of anticoagulants ==